=== PATIENT | female | born 1970 | race Caucasian/White ===

== ENCOUNTER 2017-04-16 06:10 | Emergency (ER) | payer BC ==
[~2017-04-16] VITALS: Ht 162.6 cm; Wt 72.8 kg
[~2017-04-16 06:10] MED LIST: ACCUFLORA PO; ACET-1256 PO; ASCA500 PO; ATV1 PO; BUSP30TA2 PO; CHOL1000 PO; CLON0.5T3 PO; CLR10 PO; CYM60 PO; FLUT0.15 NAE; HYDCR1CL TOP; HYDROCODONE ACETA PEG; LMC/150 PO; POLY335019 PO; ROPI0.5T15 PO; RXC5 PO; SALI1SPR15 NAE; SENN-58 PO; TRAZ50TA35 PO; [UNRECOGNIZED DRUG - OTHER] OPB
[2017-04-16 06:13] VITALS: TEMP 36.7; Ht 162.6 cm; Wt 72.8 kg
[2017-04-16] MEDS ORDERED: SODIUM CHLORIDE 0.9% 1000ML 1,000 ML IV STA (06:49)
--- NOTE | 2017-04-16 07:20 | EMERGENCY ROOM VISIT NOTE ---
History Report prepared by Amanda: Jodi Chase Under the Supervision of: Dr. Pamela John M.D. First contact with patient: 06:35 Chief Complaint: DEHYDRATION Stated Complaint: DEHYDRATED ? History of Present Illness The patient is a 47 year old female who presents to the Emergency Room with complaints of worsening dehydration that started yesterday. The patient states that she used laxatives yesterday afternoon around 1500. Since using the laxatives, she has experienced 8-10 episodes of soft stools between then and 0400 this morning. She states that her stools looked like "piles of mashed potatoes." The patient denies any blood in her stools. She is also experiencing generalized "shaking" and constant nausea. She denies vomiting. The patient looked up the symptoms of dehydration on the [facility] website and she states that her symptoms correlated with the ones that required coming into the ED for evaluation. The patient states that she has been following with her PCP for chronic constipation. Currently, she uses Milk of Magnesia, MiraLAX, and suppositories every day to be able to have bowel movements. She states that she can feel when her abdomen is bloated and hard. The patient states that she has decreased sensation before having bowel movements. She denies incontinence and states that she can feel when she is going to have a bowel movement but she only has 60 seconds to get to the bathroom. The patient is not on Metamucil or any other stool thickeners. The patient has never seen GI for her symptoms and she has not had a colonoscopy. The patient denies any chance of and states that she had a hysterectomy. The patient adds that she went to the [place] on vacation in February but she stayed at a resort. Source of History: patient Onset: yesterday Position: other (global) Quality: other (dehydration) Timing: worsening Associated Symptoms: + nausea, + diarrhea (8-10 episodes), No vomiting, No melena, No hematochezia Note: generalized "shaking" Review of Systems See HPI for pertinent positives & negatives. A total of 10 systems reviewed and were otherwise negative. Past Medical & Surgical Medical Problems: (1) Lumbar disc herniation with radiculopathy Family History Diabetes mellitus Gallbladder disease Heart disease Hypertension Social History Smoking Status: Never Smoker Smokeless Tobacco Use: No Alcohol Use: occasionally Marital Status: Housing Status: lives with family Occupation Status: employed Current/Historical Medications Scheduled Acetaminophen (Tylenol), 1,000 MG PO PRN Ascorbic Acid (Ascorbic Acid), 500 MG PO QAM Bisacodyl (Dulcolax), 2 TAB PO UD Buspirone Hcl (Buspirone Hcl), 1 TAB PO BID Cholecalciferol (Vitamin D3), 2 TABS PO QAM Clonazepam (Klonopin), 1.5 MG PO HS Diclofenac Sodium (Topical) (Voltaren 1% Top Gel), 1 APPLN TOP UD Duloxetine Hcl (Cymbalta), 120 MG PO HS Fluticasone Propionate (Nasal) (Flonase Allergy Relief), 2 SPRAYS GABI BID Lamotrigine (Lamictal), 150 MG PO BID Loratadine (Claritin), 10 MG PO QAM Magnesium Hydroxide (Milk Of Magnesia), 30-60 ML PO DAILY Melatonin (Melatonin Maximum Strengt), 1 TAB PO HS Methylphenidate Hcl (Methylphenidate Hcl Er), 1 CAP PO QAM Multivitamin (Multivitamin), 1 TAB PO QAM Naproxen (Aleve), 3 TAB PO BID Polyethylene Glycol 3350 (Miralax), 17 GM PO QAM Propylene Glycol-Glycerin (Moisture Eyes), 1 DROP OPB BID Ropinirole (Requip), 0.5 MG PO HS Sennosides-Docusate Sodium (Senokot S), 1 TAB PO BID Trazodone Hcl (Trazodone), 75 MG PO HS Scheduled PRN Lorazepam (Lorazepam), 1 MG PO Q6H PRN for Anxiety Saline (Saline Nasal Roe Infant), 1-2 SPRY GABI Q2H PRN for Nasal Congestion Allergies Coded Allergies: Formaldehyde (Verified Allergy, Intermediate, CONTACT DERMATITIS, 04/16/17) Cat Dander (Verified Allergy, Mild, ITCHY EYES RUNNY NOSE, 04/16/17) Dog Dander (Verified Allergy, Mild, ITCHY EYES-RUNNY NOSE, 04/16/17) Dust (Verified Allergy, Unknown, ITCHY EYES RUNNY NOSE, 04/16/17) Erythromycin (Verified Adverse Reaction, Mild, NAUSEA AND VOMITING, ) Physical Exam Vital Signs Date Time Temp Pulse Resp B/P (MAP) Pulse Ox O2 Delivery O2 Flow Rate FiO2 04/16/17 10:46 93 20 122/85 99 04/16/17 10:30 93 20 122/85 99 Room Air 04/16/17 09:30 95 14 129/85 99 Room Air 04/16/17 07:49 91 17 147/90 100 Room Air 04/16/17 06:13 36.7 108 20 149/87 99 Room Air Physical Exam Vital signs reviewed. General: Well-appearing female, in no significant distress. HEENT: No scleral icterus, PERRLA, neck supple. Atraumatic. Cardiovascular: Regular rate and rhythm, no extra sounds. Pulmonary: Clear to auscultation bilaterally, normal work of breathing. Abdomen: Soft, no tympany, nontender, nondistended, positive bowel sounds. Musculoskeletal: Atraumatic, no peripheral edema. Neurologic: Patient awake alert and oriented x 3 Skin: Warm, dry, no rash Medical Decision & Procedures ER Provider Diagnostic Interpretation: Radiology results as stated below per my review and radiologist interpretation: KUB FINDINGS: Postoperative findings within the lumbosacral spine are noted. Pelvic calcifications likely reflect phleboliths. The bowel gas pattern is normal. IMPRESSION: No evidence for a bowel obstruction. Electronically signed by: Frankie Brady M.D. 04/16/2017 7:59 AM Dictated Date/Time: 04/16/2017 7:58 AM Laboratory Results 04/16/17 07:25 Red Blood Count 4.26, Mean Corpuscular Volume 93.2, Mean Corpuscular Hemoglobin 29.8, Mean Corpuscular Hemoglobin Concent 32.0, Mean Platelet Volume 9.7, Neutrophils (%) (Auto) 47.4, Lymphocytes (%) (Auto) 39.6, Monocytes (%) (Auto) 11.2, Eosinophils (%) (Auto) 1.3, Basophils (%) (Auto) 0.4, Neutrophils # (Auto ) 3.33, Lymphocytes # (Auto) 2.79, Monocytes # (Auto) 0.79, Eosinophils # (Auto ) 0.09, Basophils # (Auto) 0.03 04/16/17 07:25 Test 04/16/17 07:25 White Blood Count 7.04 K/uL (4.8-10.8) Red Blood Count 4.26 M/uL (4.2-5.4) Hemoglobin 12.7 g/dL (12.0-16.0) Hematocrit 39.7 % (37-47) Mean Corpuscular Volume 93.2 fL (80-100) Mean Corpuscular Hemoglobin 29.8 pg (25-34) Mean Corpuscular Hemoglobin Concent 32.0 g/dl (32-36) Platelet Count 262 K/uL (130-400) Mean Platelet Volume 9.7 fL (7.4-10.4) Neutrophils (%) (Auto) 47.4 % Lymphocytes (%) (Auto) 39.6 % Monocytes (%) (Auto) 11.2 % Eosinophils (%) (Auto) 1.3 % Basophils (%) (Auto) 0.4 % Neutrophils # (Auto) 3.33 K/uL (1.4-6.5) Lymphocytes # (Auto) 2.79 K/uL (1.2-3.4) Monocytes # (Auto) 0.79 K/uL (0.11-0.59) Eosinophils # (Auto) 0.09 K/uL (0-0.5) Basophils # (Auto) 0.03 K/uL (0-0.2) RDW Standard Deviation 48.8 fL (36.4-46.3) RDW Coefficient of Variation 14.3 % (11.5-14.5) Immature Granulocyte % (Auto) 0.1 % Immature Granulocyte # (Auto) 0.01 K/uL (0.00-0.02) Urine Color YELLOW Urine Appearance CLEAR (CLEAR) Urine pH 6.0 (4.5-7.5) Urine Specific Grayson 1.013 (1.000-1.030) Urine Protein NEG (NEG) Urine Glucose (UA) NEG (NEG) Urine Ketones NEG (NEG) Urine Occult Blood NEG (NEG) Urine Nitrite NEG (NEG) Urine Bilirubin NEG (NEG) Urine Urobilinogen NEG (NEG) Urine Leukocyte Esterase NEG (NEG) Anion Gap 6.0 mmol/L (3-11) Est Creatinine Clear Calc Drug Dose 79.9 ml/min Estimated GFR () 93.2 Estimated GFR (Non- 80.5 BUN/Creatinine Ratio 7.7 (10-20) Calcium Level 9.2 mg/dl (8.5-10.1) Magnesium Level 2.3 mg/dl (1.8-2.4) Total Bilirubin 0.4 mg/dl (0.2-1) Direct Bilirubin < 0.1 mg/dl (0-0.2) Aspartate Amino Transf (AST/SGOT) 28 U/L (15-37) Alanine Aminotransferase (ALT/SGPT) 42 U/L (12-78) Alkaline Phosphatase 95 U/L (45-117) Total Protein 7.6 gm/dl (6.4-8.2) Albumin 4.7 gm/dl (3.4-5.0) Laboratory results per my review. Medications Administered Medications (Trade) Dose Ordered Sig/Shmuel Route Start Time Stop Time Status Last Admin Dose Admin Sodium Chloride 1,000 ml @ 999 mls/hr Q1H1M STAT IV 04/16/17 06:49 04/16/17 07:49 DC 04/16/17 06:49 999 MLS/HR Potassium Chloride (Klor-Con M10) 40 meq NOW STAT PO 04/16/17 08:08 04/16/17 08:10 DC 04/16/17 08:36 40 MEQ ED Course 0647: Past medical records reviewed. The patient was evaluated in room B12. A complete history and physical examination was performed. 0649: Ordered Sodium Chloride 1000 ml @ 999 mls/hr IV 0808: Ordered Potassium Chloride 40 meq PO 1005: Upon reevaluation, the patient appeared to have improvement of her symptoms. I discussed findings with her. She verbalized agreement of the treatment plan. She was discharged home. Medical Decision Differentials include infectious diarrhea, GI bleed, laxative abuse, dehydration , electrolyte abnormality, colitis. This patient was evaluated and appeared to be in no significant distress. Physical examination is fairly unrevealing. The patient was not able to provide a stool specimen in the emergency department. Her laboratory work reveals a mild hypokalemia. The patient was given 40 mEq of oral potassium. KUB of the abdomen reveals no significant abnormality. Patient was advised to decrease her laxative use. She was advised to drink plenty of fluids and follow -up with her physician this week for reevaluation. We did discuss the possibility of GI referral. She will return to the ER for worsening of symptoms or any medical concerns. Impression Primary Impression: Hypokalemia Additional Impression: Frequent bowel movements Scribe Attestation The scribe's documentation has been prepared under my direction and personally reviewed by me in its entirety. I confirm that the note above accurately reflects all work, treatment, procedures, and medical decision making performed by me. Departure Information Dispostion Home / Self-Care Referrals Romi Boothe D.O. (PCP) Forms HOME CARE DOCUMENTATION FORM, IMPORTANT VISIT INFORMATION, WORK / SCHOOL INSTRUCTIONS Patient Instructions My [facility] Additional Instructions Diagnosis: Hypokalemia, frequent bowel movements Please hold off on any laxatives or stool softeners for 24-48 hours. Drink plenty of clear fluids Increase the fiber in your diet. Resume stool softeners gently as needed thereafter. Follow-up with your primary care physician this week for reevaluation and consider referral to gastroenterology for further management. Problem Qualifiers
[2017-04-16 07:36] LABS: BASO % 0.4 %; BASO ABS # 0.03 K/uL (0-0.2); COMPLETE YES; EOS % 1.3 %; HEMATOCRIT 39.7 % (37-47); IG% 0.1 %; LYMPH % 39.6 %; LYMPH ABS # 2.79 K/uL (1.2-3.4); MEAN CELL VOLUME 93.2 fL (80-100); MEAN CORPUSCULAR HEMOGLOBIN 29.8 pg (25-34); MEAN PLATELET VOLUME 9.7 fL (7.4-10.4); MONO % 11.2 %; NEUT % 47.4 %; PLATELET COUNT 262 K/uL (130-400); RED BLOOD COUNT 4.26 M/uL (4.2-5.4); WHITE BLOOD COUNT 7.04 K/uL (4.8-10.8)
[2017-04-16 07:41] LABS: URINE APPEARANCE CLEAR (CLEAR); URINE BILIRUBIN NEG (NEG); URINE COLOR YELLOW; URINE NITRITE NEG (NEG); URINE SPECIFIC GRAVITY 1.013 (1.000-1.030); UROBILINOGEN NEG (NEG); ZZUR CULT IF INDIC CLEAN CATCH NO
[2017-04-16 07:45] LABS: MANUAL MICROSCOPIC REQUIRED? NO; REVIEW REQ? NO
[2017-04-16] MEDS ORDERED: MULT-506 PO (07:47)
[2017-04-16] MEDS ORDERED: MELATAB2 PO (07:47)
[2017-04-16] MEDS ORDERED: ASCO500T16 PO (07:47)
[2017-04-16] MEDS ORDERED: [UNRECOGNIZED DRUG - CODE] OPB (07:47)
[2017-04-16] MEDS ORDERED: SENN-65 PO (07:47)
[2017-04-16] MEDS ORDERED: DULO60CA44 PO (07:47)
[2017-04-16] MEDS ORDERED: MOML PO (07:47)
[2017-04-16] MEDS ORDERED: METH1CAP PO (07:47)
[2017-04-16] MEDS ORDERED: NAPR1TAB9 PO (07:47)
[2017-04-16] MEDS ORDERED: DICL1GEL12 TOP (07:51)
[2017-04-16] MEDS ORDERED: SALI1SPR15 NAE (07:51)
[2017-04-16] MEDS ORDERED: BISA-16 PO (07:51)
--- NOTE | 2017-04-16 08:00 | DIAGNOSTIC IMAGING REPORT ---
KUB CLINICAL HISTORY: Abdominal bloating. COMPARISON STUDY: None. FINDINGS: Postoperative findings within the lumbosacral spine are noted. Pelvic calcifications likely reflect phleboliths. The bowel gas pattern is normal. IMPRESSION: No evidence for a bowel obstruction. Electronically signed by: Frankie Brady M.D. 04/16/2017 7:59 AM Dictated Date/Time: 04/16/2017 7:58 AM
[2017-04-16 08:08] LABS: ALT/SGPT 42 U/L (12-78); BLOOD UREA NITROGEN 7 mg/dl (7-18); BUN/CREATININE RATIO 7.7 (10-20); CALCIUM 9.2 mg/dl (8.5-10.1); CARBON DIOXIDE 29 mmol/L (21-32); CHLORIDE 104 mmol/L (98-107); CREATININE 0.87 mg/dl (0.60-1.20); GLUCOSE 98 mg/dl (70-99); MAGNESIUM 2.3 mg/dl (1.8-2.4); POTASSIUM 3.2 mmol/L (3.5-5.1); SODIUM 139 mmol/L (136-145)
[2017-04-16] MEDS ORDERED: POTASSIUM CHLORIDE 10 MEQ TABCR PO STA (08:08)
[2017-04-16 08:11] LABS: ALKALINE PHOSPHATASE 95 U/L (45-117); AST/SGOT 28 U/L (15-37)
[2017-04-16 10:46] VITALS: BP 122/85; PULSE 93; O2SAT 99
== END 2017-04-16 10:45 | disposition home or self-care (01) ==
LOC: C.EDB 06:11
DX: E87.6 Hypokalemia (principal); R19.4 Change in bowel habit; Z83.3 Family history of diabetes mellitus; Z82.49 Family history of ischemic heart disease and other diseases of the circulatory system

== ENCOUNTER → 2017-12-19 | Outpatient (CLI) | payer OTHER ==
[~2017-12-19] MED LIST changes: -ACCUFLORA PO; -ASCA500 PO; +ASCO500T16 PO; +BISA-16 PO; -CYM60 PO; +DICL1GEL12 TOP; +DULO60CA44 PO; -HYDCR1CL TOP; -HYDROCODONE ACETA PEG; +MELATAB2 PO; +METH1CAP PO; +MOML PO; +MULT-506 PO; +NAPR1TAB9 PO; -RXC5 PO; -SENN-58 PO; +SENN-65 PO; +[UNRECOGNIZED DRUG - CODE] OPB; -[UNRECOGNIZED DRUG - OTHER] OPB
[2017-12-19 20:21] LABS: HEP C IGG 13 YRS+OLDER_RFLX NEG (NEG)
[2017-12-22 05:37] LABS: ANTI-SS-A <1.0 NEG AI (<1.0 NEG); ANTI-SS-B <1.0 NEG AI (<1.0 NEG); HEPATITIS A IGM TC 51813E NON-REACTIVE (NON-REACTIVE); HEPATITIS B CORE IGM TC51854R NON-REACTIVE (NON-REACTIVE)
== END | disposition home or self-care (01) ==
LOC: C.LAB 15:14
PROVIDERS: ATTEND Internal Medicine Rheumatology
DX: M79.1 Myalgia (principal); M25.50 Pain in unspecified joint; M79.7 Fibromyalgia; F31.30 Bipolar disorder, current episode depressed, mild or moderate severity, unspecified